=== PATIENT | female | born 1950 | race Caucasian/White ===

== ENCOUNTER 2022-03-30 10:34 | Outpatient (REF) | payer MEDICARE, SELFPAY ==
--- NOTE | ~2022-03-30 | MR_ITS ---
MR LUMBAR SPINE WITHOUT CONTRAST CLINICAL INFORMATION: Right L4-L5 radiculopathy with severe sciatica for 8 weeks. No response to treatment. COMPARISON: None TECHNIQUE: MRI of the lumbar spine was obtained using routine sequences without contrast. FINDINGS: 5 nonrib-bearing lumbar-type vertebral bodies. Grade 1 degenerative anterolisthesis of L4 on L5 and to lesser extent L5 on S1. Chronic endplate Schmorl's nodes at all lumbar levels. Modic type I endplate signal changes at L2-L3. No additional bone marrow edema. No acute fractures. Vertebral body heights overall maintained. Conus terminates at the L1-L2 level. L1-L2: Diffuse annular disc bulge eccentric to the left side and moderate bilateral hypertrophic facet arthropathy and ligamentum flavum thickening. Mild central canal stenosis and mild bilateral foraminal encroachment. L2-L3: Diffuse annular disc bulge and moderate bilateral hypertrophic facet arthropathy and ligamentum flavum thickening. Findings in concert result in mild narrowing of the central canal. No foraminal stenosis. L3-L4: There is a diffuse annular disc bulge with a superimposed right lateral disc osteophyte protrusion that contacts the extraforaminal right L3 nerve root. Moderate bilateral facet arthropathy and ligamentum flavum thickening. Mild narrowing of the central canal. Mild bilateral foraminal encroachment. L4-L5: Grade 1 degenerative anterolisthesis. Severe bilateral hypertrophic facet arthropathy and ligamentum flavum thickening. Mild narrowing of the central canal. Left lateral disc osteophyte and facet arthropathy result in moderate left-sided foraminal stenosis with mass effect on the exiting left L4 nerve root. L5-S1: Slight grade 1 anterolisthesis. Severe bilateral hypertrophic facet arthropathy. Diffuse disc osteophyte. Moderate to severe bilateral foraminal stenosis with compression of the exiting L5 nerve roots bilaterally. No central canal stenosis. MR/MR lumbar spine wo con IMPRESSION: - At L5-S1, grade 1 degenerative anterolisthesis in the setting of severe bilateral hypertrophic facet arthropathy and disc osteophyte results in moderate to severe bilateral foraminal stenosis with compression of the exiting L5 nerve roots bilaterally. - At L4-L5, there is grade 1 degenerative anterolisthesis in the setting of advanced bilateral hypertrophic facet arthropathy that along with a left lateral disc osteophyte protrusion results in moderate left foraminal stenosis with mass effect on the exiting left L4 nerve root. - At L3-L4, a right lateral disc osteophyte protrusion contacts the extraforaminal right L3 nerve root.
== END 2022-03-30 10:35 | disposition home or self-care (01) ==
LOC: HO.MRI 10:34
PROVIDERS: Visit Provider Psychiatry & Neurology Neurology
DX: M54.16 Radiculopathy, lumbar region (principal)
CPT/HCPCS: 72148

== ENCOUNTER → 2022-05-15 08:53 | Outpatient (BNVA) | payer MEDICARE, SELFPAY | PROVIDERS: PCP Internal Medicine; Visit Provider Internal Medicine | DX: M48.061 Spinal stenosis, lumbar region without neurogenic claudication (principal); M54.16 Radiculopathy, lumbar region | CPT/HCPCS: 99202 ==

== ENCOUNTER 2022-05-24 05:54 | Outpatient (REF) | payer MEDICARE, SELFPAY ==
--- NOTE | ~2022-05-24 | FL_ITS ---
EXAMINATION: XR FLUOROSCOPY WITH IMAGES CLINICAL INFORMATION: M48.061 - Spinal stenosis, lumbar region without neurogenic claudication COMPARISON: MR lumbar spine 03/30/2022 TECHNIQUE: Fluoroscopy performed by Dr. Aryan Chin. Fluoroscopy time: 0.9 minutes. Cumulative Dose: 32.4 mGy. DAP: 3.02 Gy-cm2. Images: 3. FINDINGS: There is interlaminar spinal needle at lumbosacral junction posterior approach with contrast in the epidural space. No visible vascular communication. FL/FL guidance in treatment room IMPRESSION: Fluoroscopy for pain management procedure.
== END 2022-05-24 05:55 | disposition home or self-care (01) ==
LOC: HO.RADIR 05:54
PROVIDERS: Visit Provider Internal Medicine
DX: M48.061 Spinal stenosis, lumbar region without neurogenic claudication (principal); M54.16 Radiculopathy, lumbar region
CPT/HCPCS: 62323; J1040